=== PATIENT | female | born 1950 | race Caucasian/White ===

== ENCOUNTER 2019-07-06 12:40 | Emergency (ER) | payer MEDICARE, SELFPAY ==
--- NOTE | 2019-07-06 12:42 | EKG12_ITS ---
Test Reason : SVT Blood Pressure : / mmHG Vent. Rate : 111 BPM Atrial Rate : 111 BPM P-R Int : 146 ms QRS Dur : 088 ms QT Int : 342 ms P-R-T Axes : 063 -03 046 degrees QTc Int : 465 ms Sinus tachycardia Nonspecific ST abnormality Abnormal ECG Confirmed by NATIVIDAD GUTIERREZ ([id number]), supervising editor trailer MARGARETTE CHERY ([id number]) on 07/09/2019 10:23:53 AM Referred By: DIONICIO Confirmed By:NATIVIDAD GUTIERREZ
[2019-07-06 12:46] VITALS: BP 131/74; PULSE 218; RESP 14; TEMP 36.3; O2SAT 98; BMI 27.6
[2019-07-06] MEDS: Adenosine 6 MG/2 ML Syringe IV (12:49)
--- NOTE | 2019-07-06 12:50 | RAD_ITS ---
STUDY: X-RAY CHEST REASON FOR EXAM: Female, 68 years old. Chest pain. TECHNIQUE: Single frontal view of the chest. COMPARISON: May 11, 2017 FINDINGS: Stable mild hyperexpansion. There is no demonstrated pleural abnormality. Borderline cardiomegaly unchanged. Normal mediastinum and ju. Normal visualized pulmonary arteries. Normal visualized aortic arch and descending thoracic aorta. Normal visualized thoracic spine. Normal visualized ribs, clavicles, and shoulders. There is no demonstrated abnormality of the visualized soft tissue structures of the upper abdomen. RAD/Chest 1 View (Portable) IMPRESSION: Stable chest with no acute finding. Electronically Signed: Dmitri Sanchez MD at 13:32 EDT , Service support ,
--- NOTE | 2019-07-06 12:50 | EKG12_ITS ---
Test Reason : CP/SOB Blood Pressure : / mmHG Vent. Rate : 221 BPM Atrial Rate : 214 BPM P-R Int : 000 ms QRS Dur : 080 ms QT Int : 220 ms P-R-T Axes : 000 -07 182 degrees QTc Int : 422 ms Supraventricular tachycardia Marked ST abnormality, possible inferolateral subendocardial injury Abnormal ECG Confirmed by NATIVIDAD GUTIERREZ ([id number]), video effects editor MARGARETTE CHERY ([id number]) on 07/09/2019 10:23:38 AM Referred By: DIONICIO Confirmed By:NATIVIDAD GUTIERREZ
[2019-07-06 13:01] VITALS: BP 113/80; PULSE 98; RESP 20; O2SAT 100
[2019-07-06 13:03] LABS: Absolute Lymphocyte Count 4.32 X10^3/uL (0.83-4.51); Absolute Neutrophil Count 3.2 X10^3/uL (2.0-7.7); Basophil# 0.06 X10^3/uL; Basophil% 0.7 % (0-1); Eosinophils% 2.3 % (0-5); Hematocrit 42.7 % (37-47); Hemoglobin 13.4 g/dL (12.0-15.0); Lymphocyte # 4.32 X10^3/ul (4.0); Lymphocyte % 50.3 % (19-41); Mean Corp Hgb Conc 31.4 g/dL (32-36); Mean Corpuscular Hgb 26.6 pg (27.0-32.0); Mean Corpuscular Volume 84.9 fL (81-99); Mean Platelet Vol. 9.8 fl (6.2-12.0); Monocyte# 0.76 X10^3/uL; Monocyte% 8.9 % (0-10); NRBC Flagged by Analyzer 0 % (0-5); Neutrophil # 3.21 X10^3/uL (2.7-7.7); Neutrophil % 37.5 % (47-70); Platelet Count 335 K/mm3 (150-450); RBC Distribution Width CV 14.2 % (11.6-14.6); RBC Distribution Width SD 43.5 fl (35.1-43.9); Red Blood Count 5.03 M/mm3 (4.2-5.4); White Blood Count 8.6 K/mm3 (4.4-11.0)
[2019-07-06 13:13] LABS: International Normalized Ratio 0.9; Partial Thromboplast Time 29.3 Seconds (24.1-36.2); Prothrombin Time (Protime)PT. 12.2 SECONDS (11.7-14.9)
[2019-07-06] MEDS: Aspirin 81 MG TAB.CHEW 324 MG PO (13:18)
[2019-07-06 13:23] LABS: BUN 19 mg/dL (7-18); BUN/Creat Ratio 18.4 RATIO (10-20); Creatinine, Serum 1.03 mg/dL (0.55-1.02); EST Glomerular Filtration Rate 56 mL/min (>60); Est Glom Filt Rate - Afr Amer 68 mL/min (>60); Estimated Creatinine Clearance 42.04 ml/min; Glucose 111 mg/dL (74-106)
[2019-07-06 13:24] LABS: Anion Gap 5 (5-15); Calcium,Total 8.7 mg/dL (8.5-10.1); Chloride 109 mmol/L (98-107); Potassium 3.3 mmol/L (3.5-5.1); Sodium Level 141 mmol/L (136-145); Thyroid Stim Hormone (TSH) 4.21 uIU/mL (0.358-3.74)
[2019-07-06 14:05] VITALS: BP 115/67; PULSE 100; RESP 16; O2SAT 100
[2019-07-06 15:10] VITALS: BP 115/79; PULSE 92; RESP 16; O2SAT 100
[2019-07-06 15:47] VITALS: BP 120/73; PULSE 103; RESP 16; O2SAT 100
--- NOTE | 2019-07-06 16:17 | ED.VISSUMM ---
- ER Visit Summary Date of Service: 07/06/19 Chief Complaint: Rapid heart rate History of Present Illness: The patient is a 68 F with a rapid heart rate that started earlier today just prior to arrival. Patient has some associated shortness of breath. She had this before, most recently 2 years ago. She denies any change in her medications. Denies any inciting events. Physical Examination: Heart rate 221. Otherwise vitals unremarkable. Patient appears uncomfortable, gasping for air occasionally. Alert and oriented. Skin and pulses normal. Test Results: EKG showed SVT rate of 221. CBC normal. Potassium 3.3, BUN 19, creatinine 1.03, TSH 4.21. PT and PTT normal. Chest x-ray showed chronic changes. Emergency Department Course and Treatment: Patient was seen in the room immediately. She presents with SVT. She was treated with adenosine, one single dose. Her rhythm changed to sinus tachycardia at a rate of 111. No sign of infarction. She has nonspecific ST changes. Blood pressure remained normal. Symptoms improved greatly. Work-up was performed as above. TSH slightly elevated, but otherwise work-up unremarkable. She was treated with oral potassium. Patient was discussed with Dr. Hughes to coordinate follow-up. He advised Toprol-XL 25 mill grams daily. I discussed this with the patient. She said that she was on this in the past and it caused hypotension and generalized weakness. Right now, will not add any medications. 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 She will follow-up as an outpatient. Return for any new or worsening issues. Treatment Plan: As above Disposition: Discharged Impression: SVT This note was generated with [employer] dictation software. It may contain incorrect words, spelling, and punctuation that were not noted in review of the chart prior to signing ED Disposition - Plan for ED Patient: Referrals: Jake Jones MD [Primary Care Provider] -
--- NOTE | 2019-07-06 16:23 | ED.DEP ---
ED Disposition - Plan for ED Patient: Instructions: Valsalva Maneuver Referrals: Dev Hughes MD [STAFF PHYSICIAN] -
[2019-07-06 16:37] VITALS: BP 128/78; PULSE 95; RESP 16; O2SAT 100
== END 2019-07-06 16:38 | disposition home or self-care (01) ==
LOC: ED 13:25
PROVIDERS: Emergency Provider Emergency Medicine; Family Provider Internal Medicine; PCP Internal Medicine
DX: I47.1 Supraventricular tachycardia (principal); R94.6 Abnormal results of thyroid function studies; R06.02 Shortness of breath; R06.00 Dyspnea, unspecified; G43.909 Migraine, unspecified, not intractable, without status migrainosus; Z79.82 Long term (current) use of aspirin; Z79.899 Other long term (current) drug therapy
CPT/HCPCS: 71045; 80048; 84443; 84484; 85025; 85610; 85730; 93005; 99285; A4216; J0153

== ENCOUNTER → 2019-08-04 14:43 | Outpatient (CLI) | payer MEDICARE, SELFPAY ==
[2019-07-22 09:28] VITALS: BMI 26.5
--- NOTE | 2019-08-04 14:45 | ECHOD_ITS ---
Reason For Study: Arrhythmia Procedure This was a 2D Doppler, Color Flow transthoracic echocardiogram. The exam was of adequate technical quality. Exam performed in department. Left Ventricle Normal LV size. Apical false tendon noted. Left ventricular systolic function is normal. The estimated ejection fraction is 60 %. No evidence for diastolic dysfunction. No regional wall motion abnormalities noted. Right Ventricle Normal RV size. Normal systolic function. Atria Normal left atrium. Normal right atrium. No doppler evidence for ASD. Mitral Valve There is no mitral annular calcification. Normal mitral valve. Mild (1+) mitral valve insufficiency. Tricuspid Valve Normal tricuspid valve. Mild to moderate (1-2+) tricuspid valve insufficiency. Right ventricular systolic pressure estimated to be 22 mmHg. Aortic Valve Trisinus/trileaflet aortic valve. Normal aortic valve. Pulmonic Valve The pulmonic valve is not well visualized. Trivial pulmonic valve insufficiency. Great Vessels Normal sized aortic root. Pericardium/Pleural No pericardial effusion. MMode/2D Measurements & Calculations LVIDd: 4.0 cm IVSd: 0.83 cm Ao root diam: 2.9 cm LVIDs: 2.8 cm LVPWd: 0.80 cm RVDd: 3.1 cm FS: 30.5 % LAV(MOD-bp): 25.4 ml LVAd ap4: 20.3 cm2 SV(MOD-sp4): 31.0 ml LAV(MOD-bp) Indexed: 15.0 ml/m2 EDV(MOD-sp4): 49.9 ml LAV(MOD-sp2): 32.4 ml EDV(sp4-el): 51.0 ml LAV(MOD-sp4): 19.6 ml LVAs ap4: 11.4 cm2 ESV(MOD-sp4): 18.9 ml ESV(sp4-el): 18.0 ml EF(MOD-sp4): 62.2 % EF(sp4-el): 64.8 % SV(sp4-el): 33.1 ml LA A4 area: 9.9 cm2 LA dimension(2D): 3.2 cm RA A4 area: 10.9 cm2 Doppler Measurements & Calculations MV E max jason: 54.0 cm/sec Lat Peak E' Jason: 7.8 cm/sec Med Peak E' Jason: 7.1 cm/sec MV A max jason: 63.4 cm/sec E/E' lat: 6.9 E/E' med: 7.6 MV E/A: 0.85 Ao V2 max: 83.3 cm/sec LV V1 max: 65.7 cm/sec PA V2 max: 62.2 cm/sec Ao max P.8 mmHg LV V1 max P.7 mmHg Ao V2 mean: 60.9 cm/sec Ao mean P.6 mmHg Ao V2 VTI: 17.8 cm PI end-d jason: 87.6 cm/sec TR max jason: 218.7 cm/sec TR max P.1 mmHg Interpretation Summary Left ventricular systolic function is normal. The estimated ejection fraction is 60 %. Apical false tendon noted. Mild (1+) mitral valve insufficiency. Mild to moderate (1-2+) tricuspid valve insufficiency. Trivial pulmonic valve insufficiency. Right ventricular systolic pressure estimated to be 22 mmHg. No evidence for diastolic dysfunction. Ordering Physician: Dev Hughes Referring Physician: Jake Jones Performed By: Rona Warner, YULISSACS, RVT
== END ==
PROVIDERS: Family Provider Internal Medicine; PCP Internal Medicine; Referring Provider Internal Medicine Cardiovascular Disease; Visit Provider Internal Medicine Cardiovascular Disease
DX: I47.1 Supraventricular tachycardia (principal)
CPT/HCPCS: 93306

== ENCOUNTER 2022-09-24 02:19 | Emergency (ER) | payer MEDICARE, OTHER, SELFPAY ==
[2022-09-24 02:19] VITALS: BP 125/79; PULSE 84; RESP 17; TEMP 36.8; O2SAT 100; BMI 23.6
--- NOTE | 2022-09-24 02:34 | EKG12_ITS ---
Test Reason : CP Blood Pressure : / mmHG Vent. Rate : 080 BPM Atrial Rate : 080 BPM P-R Int : 130 ms QRS Dur : 082 ms QT Int : 404 ms P-R-T Axes : 067 -10 052 degrees QTc Int : 465 ms Normal sinus rhythm Nonspecific ST and T wave abnormality Abnormal ECG Confirmed by CRISTHIAN EDOUARD, SAIDA ([id number]), video news editor LUCILLE MCNEIL ([id number]) on 09/25/2022 9:56:25 AM Referred By: Confirmed By:SAIDA MORROW MD
--- NOTE | 2022-09-24 02:34 | RAD_ITS ---
INDICATION: Chest pain and epigastric pain EXAMINATION/TECHNIQUE: X-RAY - XR Chest 1 View COMPARISON: Chest x-ray from 07/06/2019 FINDINGS: LINES/DEVICES: None. LUNGS: Hyperexpanded lungs again noted. Chronic left basilar linear scarring. No pulmonary edema or focal airspace consolidation. No sizable pleural effusion. No pneumothorax detected. MEDIASTINUM AND CARDIOVASCULAR STRUCTURES: Heart size within normal limits. Mediastinal contours unremarkable. BONES AND SOFT TISSUES: Mild skeletal degenerative changes. RAD/Chest 1 View (Portable) IMPRESSION: COPD with left basilar linear scarring. Electronically Signed: Alfonso Raymond MD at 3:40 EST ,
[2022-09-24 02:41] VITALS: O2SAT 97
--- NOTE | 2022-09-24 02:42 | EDS_ITS ---
HPI HPI - GI History of Present Illness Chief Complaint: Chest Pain Detail of Chief Complaint: Epigastric abdominal pain Informant: patient Abdominal Pain/Flank Pain Onset: Days Context: Gradual Onset Timing: Continuous Quality: Aching Location: Epigastric Current Severity: Mild Maximum Severity: Mild Worsened by: Nothing Relieved by: Nothing Nausea/Vomiting/Emesis GI Symptom: Positive for Nausea and Vomiting Severity: Mild Diarrhea/Melena/Hematochezia GI Symptom: Negative for Diarrhea, Melena or Hematochezia Associated Symptoms Associated Symptoms: Negative for Dysuria, Frequency or Hematuria Narrative Narrative: 71-year-old female history of reflux prior appendectomy and surgery for gastroparesis. States on about 12:30 AM started epigastric abdominal pain. Associated nausea vomiting which is since resolved. No hematemesis. No fever. No back pain. No history of gallbladder disease still has her gallbladder. No melena. No dysuria. No constipation. No chest pain or shortness of breath. The pain does not radiate into her chest. Prior similar symptoms: Yes Recent Illness/Hospitalization: No PFSH PFS Medical History (Updated 09/24/22 @ 04:[address] Cecil Berry MD) Barretts esophagus Benign neoplasm of colon GERD (gastroesophageal reflux disease) Idiopathic colitis Mixed hyperlipidemia Osteopenia Paroxysmal supraventricular tachycardia Home Medications amitriptyline 25 mg tablet 25 mg PO QHS 02/02/17 [History Last Taken Unknown] atorvastatin 10 mg tablet 10 mg PO QHS 02/02/17 [History Last Taken Unknown] rizatriptan 10 mg tablet 10 mg PO PRN PRN Headache 02/02/17 [History Last Taken Unknown] topiramate 25 mg tablet 25 mg PO QHS 02/02/17 [History Last Taken Unknown] aspirin 81 mg chewable tablet 81 mg PO DAILY@0800 05/11/17 [History Last Taken Unknown] diphenhydramine HCl 25 mg capsule 25 mg PO BID PRN PRN Migraine Symptoms 07/06/19 [History Last Taken Unknown] metoclopramide HCl 10 mg tablet 10 mg PO PRN PRN Nausea 07/06/19 [History Last Taken Unknown] omega 3-dha 60 mg-epa 90 mg-fish oil 500 mg capsule, delayed release 1,000 mg PO DAILY 07/06/19 [History Last Taken Unknown] pantoprazole 40 mg tablet,delayed release 40 mg PO DAILY 07/06/19 [History Last Taken Unknown] metoprolol succinate 25 mg tablet,extended release 24 hr 25 mg PO DAILY #30 tabs 07/22/19 [Rx Last Taken Unknown] Allergy/AdvReac Type Severity Reaction Status Date / Time acetaminophen [From Percocet] AdvReac Severe Vomiting Verified 09/24/22 02:23 oxycodone [From Percocet] AdvReac Severe Vomiting Verified 09/24/22 02:23 sumatriptan AdvReac Severe GI upset Verified 09/24/22 02:23 propoxyphene HCl AdvReac Nausea Verified 09/24/22 02:23 [From Darvon] Family History Mother Cardiomyopathy Father Diabetes CVA (cerebral vascular accident) Cancer Prostate, Kidney Brother Myocardial infarction, Onset Age: 55 Surgical History History of appendectomy History of exploratory laparotomy Social History Smoking Status: Former smoker alcohol intake: never substance use type: does not use caffeine: Yes Type: coffee Number of servings: 5 ROS ROS ED ROS Narrative Epigastric abdominal pain. Nausea and vomiting resolved. Review of Systems ROS Unobtainable: Denies due to encephalopathy Constitutional Constitutional ED: Denies fever(s) ENT ENT ED: Denies ear pain Cardiovascular Cardiovascular: Denies chest pain or palpitations Respiratory/Chest Respiratory/Chest: Denies cough or dyspnea Gastrointestinal Gastrointestinal: Reports abdominal pain, nausea and vomiting; Denies constipation, diarrhea or melena Genitourinary Genitourinary ED: Denies dysuria or hematuria Musculoskeletal Musculoskeletal: Denies arthralgias or back pain Integumentary Denies abscess Neurologic Neurologic: Denies headache(s) Psychiatric Psychiatric: Denies anxiety Endocrine Endocrinology: Denies polydipsia Hematologic/Lymphatic Hematologic/Lymphatic: Denies easy bleeding Allergic/Immunologic Allergic/Immunologic ED: Denies mouth swelling or tongue swelling EXAM Physical Exam Narrative Exam Narrative: Well-appearing 71-year-old female. Vital signs stable afebrile. Pulse ox 100% on room air no hypoxia. H EENT exam unremarkable. Neck nontender. Lungs clear to auscultation. Heart regular rhythm rate about 85 no murmur. Chest wall nontender. Abdomen soft, nondistended, normal bowel sounds no peritoneal signs. Mild epigastric tenderness. No right upper or right lower quadrant tenderness. No distention or obstruction. No pulsatile mass. No peritoneal signs. Moving all 4 extremities. Calves are nontender without edema. Back nontender. Neurologic exam normal. Const Vital Signs: 09/24/22 02:19 09/24/22 02:41 Temperature 98.2 F Temperature Source Oral Pulse Rate 84 Respiratory Rate 17 Blood Pressure 125/79 H Blood Pressure Mean 94 Pulse Ox 100 97 Oxygen Delivery Method Room Air Room Air Positive well nourished and well developed; Negative for obese, cachectic, contractures or unkempt General Appearance ED: well developed and NAD; Negative for unkempt, cachectic, contractures or pallor Nutritional Appearance: Negative for cachectic or obese HEENT Reports moist mucous membranes normocephalic and atraumatic; Negative for trauma or tenderness Eyes PERRL and EOMs intact bilaterally General Eye ED: Negative for pale conjunctiva or scleral icterus Neck no lymphadenopathy, supple and no JVD General: Negative for tenderness Carotids: Negative for other Lymph Lymphatic: Negative for other Resp normal respiratory effort and clear to auscultation bilaterally Effort and Inspection: Negative for respiratory distress Auscultation: Negative for rales, rhonchi or wheezes Cardio regular rate, regular rhythm, S1 normal heart sound, S2 normal heart sound and no murmurs Rhythm: Negative for abnormal rhythm GI non-distended and no masses; Negative for non-tender GI Narrative: Epigastric tenderness only. No right upper or right lower quadrant tenderness. No mass. No distention. No pulsatile mass. Inspection: Negative for abdominal distention Auscultation: normoactive bowel sounds Palpation: soft and tender; Negative for guarding, hernia, mass, pulsatile mass or rebound tenderness present Back/Spine no CVA tenderness General Back: Negative for CVA tenderness Cervical Spine: Negative for cervical spine tenderness Thoracic Spine / Upper Back: Negative for thoracic spinal tenderness Lumbar Spine / Lower Back: Negative for lumbar spinal tenderness Coccyx: Negative for other Extremity full ROM General Extremety ED: Negative for edema or tenderness General Extremity: Negative for edema Neuro CN's II-XII intact bilaterally and moves all extremities Sensorium / Orientation: alert, oriented to person, oriented to place and oriented to time; Negative for orientation impaired, confused, lethargic or stuporous Motor Exam: strength 5/5 throughout Psych mental status grossly normal and thought process normal Appearance: Negative for unkempt Attitude: No agitated Mood & Affect: Negative for depressed, anxious or tearful Skin no wounds General Skin Exam: Negative for jaundice or pallor Lesions: no lesions Rashes: no rashes Trauma: Negative for abrasion Nails: Negative for discolored MDM MDM MDM Narrative Medical decision making narrative: 71-year-old female epigastric abdominal pain. Clinically I do not think this is cardiac. EKG is unremarkable. She undergo cardiac and abdominal work-up. I do not think she needs imaging at this time. Liver and lipase will be obtained along with blood counts and electrolytes. She will be given a GI cocktail and Protonix and reevaluated. Repeat exam patient is doing well at 4:22 AM. Abdomen is benign. She said she got great relief with a GI cocktail and Protonix. She is comfortable being discharged home. Her abdominal exam is benign and nontender. There are no peritoneal signs. She and I went over all of her lab test. She has been placed on stomach medications at home and will restart her sucralfate that was pres cribed in the past by her GI doctor. She will follow-up with either her aircraft structural repair mechanic or primary care physician if not improving or return if worse. She knows to return if increasing pain, fever, hematemesis or melena. Lab Data Attestation: I reviewed the patient's lab results. Lab results narrative: CBC unremarkable. White count 6.1. H&H 12.3 and 39. Platelets of 362. Chemistries show potassium of 3.4. Gap of 8. Normal BUN of 13 creatinine 0.8. Liver enzymes are normal. Lipase is normal at 133. Troponin is normal at 4. Labs: Laboratory Results - last 24 hr 09/24/22 09/24/22 02:45 02:45 WBC 6.1 RBC 4.59 Hgb 12.3 Hct 39.3 MCV 85.6 MCH 26.8 L MCHC 31.3 L RDW Std Deviation 42.5 RDW Coeff of [place] 13.6 Plt Count 362 MPV 9.5 Immature Gran % (Auto) 0.200 Neut % (Auto) 55.9 Lymph % (Auto) 32.8 [place] % (Auto) 8.2 Eos % (Auto) 2.1 Baso % (Auto) 0.8 Absolute Neuts (auto) 3.4 Absolute Lymphs (auto) 2.00 Nucleated RBC % 0 Sodium 140 Potassium 3.4 L Chloride 106 Carbon Dioxide 26.0 Anion Gap 8 BUN 13 Creatinine 0.89 Estim Creat Clear Calc 46.57 Est GFR (MDRD) Af Amer 80 Est GFR (MDRD) Non-Af 66 BUN/Creatinine Ratio 14.7 Glucose 123 H Calcium 9.5 Total Bilirubin 0.40 AST 15 ALT 24 Alkaline Phosphatase 64 Troponin I High Sens 4 Total Protein 7.0 Albumin 3.3 Globulin 3.7 Albumin/Globulin Ratio 0.9 Lipase 133 Radiography Diagnostic Testing: Clinical Impression(s) from Imaging Studies Chest X-Ray 09/24/22 02:34 IMPRESSION: COPD with left basilar linear scarring. Electronically Signed: Alfonso Raymond MD at 3:40 EST , Chest x-ray, portable, single view interpreted by myself shows atelectasis in the left base versus scarring.. Normal cardiac silhouette. Normal mediastinum. No infiltrate. No pneumothorax. Chronic changes. Rhythm Strip Rhythm Strip: Sinus Rhythm Rate: 80 Ectopy: None EKG Initial EKG: Attestation: I personally reviewed and interpreted this EKG as follows: Interpretation: Sinus Rhythm and No Acute Injury Pattern Comments: Normal sinus rhythm rate of 80 no acute signs of PR or ischemia. No old EKG. Prior EKG tracings: not available for review Discharge Plan Triage Chief Complaint: Chest Pain ED Provider: Cecil Berry Dx/Rx/DC Orders Clinical Impression: Abdominal pain, Gastritis Instructions: Abdominal Pain, ED Gastritis (Adult) Prescriptions: No Action metoprolol succinate 25 mg tablet extended release 24 hr 25 mg PO DAILY Qty: 30 3RF Rx Instructions: 1/2 tablet po qday atorvastatin 10 MG tablet 10 mg PO QHS rizatriptan 10 MG tablet 10 mg PO PRN PRN (Reason: Headache) Label Comments: TAKE 1 TABLET BY MOUTH NEEDED FOR MIGRAINE HEADACHE --TAKE 1 TABLETAT THE START OF HEADACHE --MAY REPEAT IN 2 HOURS IF NEEDED topiramate 25 MG tablet 25 mg PO QHS Label Comments: Take 1 tablet by mouth daily at bedtime. amitriptyline 25 MG tablet 25 mg PO QHS Label Comments: TAKE 1 TABLET EVERY DAY AT BEDTIME aspirin 81 MG tablet,chewable 81 mg PO DAILY@0800 pantoprazole 40 MG tablet 40 mg PO DAILY diphenhydramine HCl 25 MG capsule 25 mg PO BID PRN PRN (Reason: Migraine Symptoms) metoclopramide HCl 10 MG tablet 10 mg PO PRN PRN (Reason: Nausea) omega [id number]-[id number]-fish oil 500 MG capsule,delayed release(DR/EC) 1,000 mg PO DAILY Primary Care Provider: Ap Joshi Referrals: Ap Joshi MD [Primary Care Provider] - 3-5 Days if not improving Activity Restrictions/Additional Instructions: Restart your Sucralflate for your stomach. Follow-up with your doctor or aircraft structural repair mechanic if not improving. Return if increasing pain, fever, vomiting blood or black stools. Disposition Disposition: Home, Self Care
[2022-09-24] MEDS: Pantoprazole Sodium 40 MG Tablet PO (02:47)
[2022-09-24] MEDS: Mag Hydrox/Al Hydrox/Simeth 30 ML UDC PO (02:47)
[2022-09-24 03:08] LABS: Absolute Neutrophil Count 3.4 X10^3/uL (2.0-7.7); Basophil# 0.05 X10^3/uL; Basophil% 0.8 % (0-1); Eosinophil# 0.13 X10^3/uL; Eosinophils% 2.1 % (0-5); Hematocrit 39.3 % (37-47); Hemoglobin 12.3 g/dL (12.0-15.0); Lymphocyte % 32.8 % (19-41); Mean Corp Hgb Conc 31.3 g/dL (32-36); Mean Corpuscular Hgb 26.8 pg (27.0-32.0); Mean Corpuscular Volume 85.6 fL (81-99); Mean Platelet Vol. 9.5 fl (6.2-12.0); Monocyte% 8.2 % (0-10); NRBC Flagged by Analyzer 0 % (0-5); Neutrophil % 55.9 % (47-70); Platelet Count 362 K/mm3 (150-450); RBC Distribution Width CV 13.6 % (11.6-14.6); RBC Distribution Width SD 42.5 fl (35.1-43.9); Red Blood Count 4.59 M/mm3 (4.2-5.4); White Blood Count 6.1 K/mm3 (4.4-11.0)
[2022-09-24 03:45] LABS: ALB/GLOB Ratio 0.9 RATIO (0.9-2.4); AST(SGOT) 15 U/L (15-37); Alanine Aminotransfer ALT/SGPT 24 U/L (13-56); Albumin, Serum 3.3 g/dL (3.2-5.0); Alkaline Phosphatase 64 U/L (45-117); Anion Gap 8 (5-15); BUN 13 mg/dL (7-18); BUN/Creat Ratio 14.7 RATIO (10-20); Calcium,Total 9.5 mg/dL (8.5-10.1); Chloride 106 mmol/L (98-107); Creatinine, Serum 0.89 mg/dL (0.55-1.02); EST Glomerular Filtration Rate 66 mL/min (>60); Est Glom Filt Rate - Afr Amer 80 mL/min (>60); Estimated Creatinine Clearance 46.57 ml/min; Globulin 3.7 g/dL (2.2-4.2); Glucose 123 mg/dL (74-106); Lipase 133 U/L (73-393); Potassium 3.4 mmol/L (3.5-5.1); Sodium Level 140 mmol/L (136-145); Troponin-I HS (w/2H Reflex) 4 pg/mL (3.0-54.0)
[2022-09-24 04:23] VITALS: BP 107/79; PULSE 75; RESP 16; O2SAT 98
[2022-09-24 04:33] VITALS: BP 107/79; PULSE 75; RESP 16; O2SAT 98
[2022-09-24 04:55] LABS: Reflex Troponin-HS? (from REC) Y
== END 2022-09-24 04:34 | disposition home or self-care (01) ==
PROVIDERS: Emergency Provider Emergency Medicine; PCP Family Medicine; Visit Provider Emergency Medicine
DX: K29.70 Gastritis, unspecified, without bleeding (principal); R07.9 Chest pain, unspecified; E78.2 Mixed hyperlipidemia; R10.13 Epigastric pain; Z87.891 Personal history of nicotine dependence
CPT/HCPCS: 71045; 80053; 83690; 84484; 85025; 93005; 99285; A4216

== ENCOUNTER 2023-08-11 15:26 | Emergency (ER) | payer MEDICARE, OTHER, SELFPAY ==
[2023-08-11 15:27] VITALS: BP 123/78; PULSE 82; RESP 16; TEMP 36.3; O2SAT 100; BMI 23.7
--- NOTE | 2023-08-11 17:33 | RAD_ITS ---
INDICATION: 3rd digit trauma EXAMINATION/TECHNIQUE: X-RAY - LEFT XR Hand Min 3 Views 3 VIEWS COMPARISON: No relevant prior comparison study available FINDINGS: SOFT TISSUES: There are digit soft tissue swelling. No radiopaque foreign body. BONES/JOINTS: No acute fracture or subluxation.. Normal alignment. Preservation of the joint space.. No sclerotic or destructive changes observed. RAD/Hand Min 3 Views IMPRESSION: No fracture or malalignment. Soft tissue swelling of the third digit. Electronically Signed: Artemio Sr MD at 17:50 EST ,
[2023-08-11] MEDS: Diphth,Pertuss(Acell),Tet Vac 0.5 ML Vial IM (17:41)
--- NOTE | 2023-08-11 18:48 | EX.ED.DYSGE1 ---
HPI <CIELO Horton - Last Filed: 08/11/23 18:53> History of Present Illness Chief Complaint: Laceration Narrative Narrative: Patient is a 72-year-old female with history of GERD, hyperlipidemia presents to the emergency department with left third finger pain. Patient states that she was pulling a pin on a trailer hitch, when a piece of metal slammed on her finger. Patient has a laceration to the palm side of the left third finger. Patient is unsure of her last tetanus vaccination. Patient denies any other injury. [facility] <CIELO Horton - Last Filed: 08/11/23 18:53> [facility] Medical History (Updated 08/11/23 @ 18:52 by CIELO Horton) Barretts esophagus Benign neoplasm of colon GERD (gastroesophageal reflux disease) Idiopathic colitis Mixed hyperlipidemia Osteopenia Paroxysmal supraventricular tachycardia Home Medications amitriptyline 25 mg tablet 25 mg PO QHS 02/02/17 [History Last Taken Unknown] atorvastatin 10 mg tablet 10 mg PO QHS 02/02/17 [History Last Taken Unknown] rizatriptan 10 mg tablet 10 mg PO PRN PRN Headache 02/02/17 [History Last Taken Unknown] topiramate 25 mg tablet 25 mg PO QHS 02/02/17 [History Last Taken Unknown] aspirin 81 mg chewable tablet 81 mg PO DAILY@0800 05/11/17 [History Last Taken Unknown] diphenhydramine HCl 25 mg capsule 25 mg PO BID PRN PRN Migraine Symptoms 07/06/19 [History Last Taken Unknown] metoclopramide HCl 10 mg tablet 10 mg PO PRN PRN Nausea 07/06/19 [History Last Taken Unknown] omega 3-dha 60 mg-epa 90 mg-fish oil 500 mg capsule, delayed release 1,000 mg PO DAILY 07/06/19 [History Last Taken Unknown] pantoprazole 40 mg tablet,delayed release 40 mg PO DAILY 07/06/19 [History Last Taken Unknown] metoprolol succinate 25 mg tablet,extended release 24 hr 25 mg PO DAILY #30 tabs 07/22/19 [Rx Last Taken Unknown] Allergy/AdvReac Type Severity Reaction Status Date / Time oxycodone [From Percocet] AdvReac Severe Vomiting Verified 08/11/23 15:29 sumatriptan AdvReac Severe GI upset Verified 08/11/23 15:29 propoxyphene HCl AdvReac Nausea Verified 08/11/23 15:29 [From Sherine] Family History Mother Cardiomyopathy Father Diabetes CVA (cerebral vascular accident) Cancer Prostate, Kidney Brother Myocardial infarction, Onset Age: 55 Surgical History History of appendectomy History of exploratory laparotomy Social History Smoking Status: Former smoker alcohol intake: never substance use type: does not use caffeine: Yes Type: coffee Number of servings: 5 ROS <CIELO Horton - Last Filed: 08/11/23 18:53> ROS ED ROS Narrative Constitutional: Negative for fever, chills, weight loss, weakness Eyes: Negative for vision loss, vision change, double vision ENT: Negative for any sore throat, ear pain, congestion Cardiovascular: Negative for any chest pain, tightness, palpitations Respiratory: Negative for any cough, sputum production, hemoptysis, dyspnea, dyspnea on exertion, orthopnea Gastrointestinal: Negative for any abdominal pain, nausea, vomiting, diarrhea, constipation, blood in stool, blood in vomit : Negative for any urinary frequency, dysuria, retention, blood in urine Muscle skeletal: Negative for any myalgias, arthralgias, neck pain, back pain Neurological: Negative for any headache, syncope, numbness or tingling, dizziness Skin: Negative for any rashes, lumps, itching, abrasions. Positive for laceration to the left third finger Psychiatric: Negative for any depression, anxiety, stress, suicidal ideation, homicidal ideation Hematologic: Negative for any easy bruising, excessive bruising, easy bleeding Allergies: Negative for any eczema, hives, rash EXAM <CIELO Horton - Last Filed: 08/11/23 18:53> Physical Exam Narrative Exam Narrative: Vital signs reviewed. Extremities: No peripheral edema, no signs of gross trauma or deformity. Active full range of motion of all extremities. Has a 2 cm horizontal laceration to the palmar aspect of the left third finger. This is a flap-like laceration. No tendon involvement. Patient is able to flex and extend without any difficulty. No foreign body noted. Nailbed appears intact. Neuro: Cranial nerves II through XII intact, no focal neurological deficits. Skin: Clean dry and intact with no rash, purpura, petechiae, vesicles or pustules. Backs/flank: No CVA tenderness, no midline spinal tenderness, no deformity. Psych: Normal mood and affect. No SI, HI or acute psychosis. Const Vital Signs: 08/11/23 15:27 Temperature 97.4 F L Temperature Source Temporal Pulse Rate 82 Respiratory Rate 16 Blood Pressure 123/78 H Blood Pressure Mean 93 Pulse Ox 100 Oxygen Delivery Method Room Air <Dr. Chidi Rice DO - Last Filed: 08/11/23 22:19> Physical Exam Const Vital Signs: 08/11/23 15:27 Temperature 97.4 F L Temperature Source Temporal Pulse Rate 82 Respiratory Rate 16 Blood Pressure 123/78 H Blood Pressure Mean 93 Pulse Ox 100 Oxygen Delivery Method Room Air MDM <CIELO Horton - Last Filed: 08/11/23 18:53> MDM Radiography Diagnostic Testing: Clinical Impression(s) from Imaging Studies Hand X-Ray 08/11/23 17:33 IMPRESSION: No fracture or malalignment. Soft tissue swelling of the third digit. Electronically Signed: Artemio Sr MD at 17:50 EST , Treatment and Re-Evaluation :: Appears well, patient appears nontoxic, vital signs are stable. Presenting to the emergency department complaints of left third finger pain. Patient did receive x-rays of the left hand concerning for any fracture, concerning for a tuft fracture. X-ray of the left hand interpreted by the ER physician shows no fracture or malalignment. Just soft tissue injury. I was able to anesthetize the finger. I was able to place 7 simple interrupted sutures of 5-0 Ethilon. Patient tolerated well. Edges approximated nicely. Patient will be placed in a dressing. Tetanus vaccination be updated. She is instructed to have the sutures removed in 10 days. She was given wound care instructions, return precautions, stable for discharge <Dr. Chidi Rice DO - Last Filed: 08/11/23 22:19> MDM Radiography Diagnostic Testing: Clinical Impression(s) from Imaging Studies Hand X-Ray 08/11/23 17:33 IMPRESSION: No fracture or malalignment. Soft tissue swelling of the third digit. Electronically Signed: Artemio Sr MD at 17:50 EST Reading Location ID and State: [facility] / [place] Tel , Service support , Treatment and Re-Evaluation :: Appears well, patient appears nontoxic, vital signs are stable. Presenting to the emergency department complaints of left third finger pain. Patient did receive x-rays of the left hand concerning for any fracture, concerning for a tuft fracture. X-ray of the left hand interpreted by the ER physician shows no fracture or malalignment. Just soft tissue injury. I was able to anesthetize the finger. I was able to place 7 simple interrupted sutures of 5-0 Ethilon. Patient tolerated well. Edges approximated nicely. Patient will be placed in a dressing. Tetanus vaccination be updated. She is instructed to have the sutures removed in 10 days. She was given wound care instructions, return precautions, stable for discharge I have personally performed a face to face assessment of the patient and have reviewed the GUERO Note. I performed a substantive portion of the visit including all aspects of the following. My lau findings include: History is patient sustained a crush injury to the left middle finger resulting in laceration. Unknown last tetanus. Exam is there is a flap laceration over the volar aspect of the left middle finger fat pad. No obvious tendon injury. No tendon visualized. No subungual hematoma. Distal end of the finger is pink. Medical Decison Making my independent interpretation of the plain films of the finger is no acute fracture. Wound was sutured by nurse practitioner. Would recommend suture removal in 10 days. Care if worsening or concerns Procedures <CIELO Horton - Last Filed: 08/11/23 18:53> Lacerations Left middle finger: Length: 0.79 in Depth: Skin Shape: Flap Prep: Sterile Conditions and Shure-Clens Laceration repair: Irrigated and Lidocaine Irrigated (ml): 300 Number of Sutures/Mark: 7 Suture Information: Ethilon and 5-0 Comment: Sterile gloves, sterile drapes were used. Tolerated well Discharge Plan Triage Chief Complaint: Laceration ED Midlevel Provider: Dev Booth ED Provider: Chidi Rice Dx/Rx/DC Orders Clinical Impression: Finger laceration Instructions: ED Laceration Hand with ... Prescriptions: No Action metoprolol succinate 25 mg tablet extended release 24 hr 25 mg PO DAILY Qty: 30 3RF Rx Instructions: 1/2 tablet po qday atorvastatin 10 MG tablet 10 mg PO QHS rizatriptan 10 MG tablet 10 mg PO PRN PRN (Reason: Headache) Patient Comments: TAKE 1 TABLET BY MOUTH NEEDED FOR MIGRAINE HEADACHE --TAKE 1 TABLETAT THE START OF HEADACHE --MAY REPEAT IN 2 HOURS IF NEEDED topiramate 25 MG tablet 25 mg PO QHS Patient Comments: Take 1 tablet by mouth daily at bedtime. amitriptyline 25 MG tablet 25 mg PO QHS Patient Comments: TAKE 1 TABLET EVERY DAY AT BEDTIME aspirin 81 MG tablet,chewable 81 mg PO DAILY@0800 pantoprazole 40 MG tablet 40 mg PO DAILY diphenhydramine HCl 25 MG capsule 25 mg PO BID PRN PRN (Reason: Migraine Symptoms) metoclopramide HCl 10 MG tablet 10 mg PO PRN PRN (Reason: Nausea) omega 2-nju-shh-fish oil 500 MG capsule,delayed release(DR/EC) 1,000 mg PO DAILY Primary Care Provider: Ap Joshi Referrals: Ap Joshi MD [Primary Care Provider] - Activity Restrictions/Additional Instructions: You have 7 sutures, please have these removed in 10 days. Keep the area clean and dry. Disposition Disposition: Home, Self Care Discharge Date/Time: 08/11/23 19:07
== END 2023-08-11 19:07 | disposition home or self-care (01) ==
PROVIDERS: Emergency Provider Emergency Medicine; PCP Family Medicine; Visit Provider Emergency Medicine
DX: S61.213A Laceration without foreign body of left middle finger without damage to nail, initial encounter (principal); W23.0XXA Caught, crushed, jammed, or pinched between moving objects, initial encounter; E78.2 Mixed hyperlipidemia; K21.9 Gastro-esophageal reflux disease without esophagitis; Z23 Encounter for immunization; Z79.82 Long term (current) use of aspirin; Z79.899 Other long term (current) drug therapy; Z87.891 Personal history of nicotine dependence
CPT/HCPCS: 12001; 73130; 90715; 99282